=== PATIENT | male | born 1990 | race African-American/Black ===

== ENCOUNTER 2017-04-12 10:50 | Emergency (ER) | payer OTHER ==
[~2017-04-12] VITALS: Wt 61.5 kg
[~2017-04-12 10:50] MED LIST: ACET500C5 PO; ALBU18HF INHALATION; AMOX1TAB10 PO; AZIT250T94 PO; BACTDS PO; BENZ100C70 PO; D-ME473S2 PO; IBUP-1542 PO; IBUP400T22 PO; LORA-441 PO; PSEU120T51 PO; UDPVCC PO; UDROBDM PO
--- NOTE | 2017-04-12 13:35 | ERD ---
ER Documentation Chief Complaint Chief Complaint COUGH, CONGESTION, ONSET 3 WEEKS HPI 26-year-old male, with history of asthma, presents to the emergency department complaining of 3 weeks of progressive cough and chest congestion. The cough is described as dry, constant. Associated with mild fever and wheezing. No treatment attempted at this time. ROS SYSTEMIC symptoms: Subjective fever, chills, no night sweats, no weight loss EYE symptoms: No blurred vision, no eye discharge OTOLARYNGEAL symptoms: No hearing loss. No ear pain, no sore throat CARDIOVASCULAR symptoms: No chest pain or discomfort, no palpitations. PULMONARY symptoms: Per HPI GASTROINTESTINAL symptoms: No abdominal pain, no nausea, no vomiting, no diarrhea MUSCULOSKELETAL symptoms: No arthralgias, no muscle aches. NEUROLOGY symptoms: No confusion, no syncope, no numbness or tingling. SKIN: No rashes Medications Home Meds Active Scripts Promethazine HCl/Codeine (Prometh-Codein 6.25-10 mg/5 ml) 5 Ml Syrup, 5 ML PO QHS for COUGH for 5 Days, #120 ML Prov:HAKEEM TAM MD 04/12/17 Albuterol Sulfate* (Proair HFA*) 8.5 Gm Hfa.aer.ad, 2 PUFF INH Q6H Y for WHEEZING AND SOB, #1 INHALER Prov:HAKEEM TAM MD 04/12/17 Azithromycin* (Zithromax*) 250 Mg Tablet, 250 MG PO .ZPACK DIRECTED, #6 TAB TAKE 500 MG (2 TABS) THE FIRST DAY THEN 250 MG (1 TAB) DAYS 2-5 Prov:HAKEEM TAM MD 04/12/17 Ibuprofen* (Motrin*) 600 Mg Tab, 600 MG PO Q6, #30 TAB Prov:MARIBEL VELÁSQUEZ PA-C 11/10/15 Benzonatate* (Tessalon Perle*) 100 Mg Capsule, 100 MG PO Q8H Y for COUGH, #20 CAP Prov:MARIBEL VELÁSQUEZ PA-C 11/10/15 Pseudoephedrine Hcl (Sudafed 12 Hour) 120 Mg Tablet.sa, 120 MG PO DAILY, #30 TAB 0 Refills Prov:EDELMIRA CLAY PA-C 07/30/15 Albuterol Sulfate* (Ventolin HFA*) 18 Gm Hfa.aer.ad, 2 PUFF INHALATION Q6H, #1 INHALER 0 Refills Prov:EDELMIRA CLAY CIRA 07/30/15 Phenylephrine Ois-Njxalxn-Tvjyqvgacqoj* (Promethazine VC Codeine* Syrup) 120 Ml Syrup, 5 ML PO Q6 Y for COUGH, #120 ML 0 Refills Prov:EDELMIRA CLAY CIRA 07/30/15 Amox Tr/Potassium Clavulanate (Amox Tr-K Clv 875-125 Mg Tab) 1 Tab Tablet, 1 TAB PO BID, #20 TAB 0 Refills Prov:EDELMIRA CLAY CIRA 07/30/15 Guaifenesin-Dextromethorphan* (Robitussin* DM) 100MG/10MG/5ML Syrup, 5 ML PO Q6H Y for COUGH, #120 ML 0 Refills Prov:EDELMIRA CLAY CIRA 07/25/15 Azithromycin* (Zithromax*) 250 Mg Tablet, 250 MG PO .ANNEMARIE DIRECTED, #6 TAB 0 Refills TAKE 500 MG (2 TABS) THE FIRST DAY THEN 250 MG (1 TAB) DAYS 2-5 Prov:EDELMIRA CLAY CIRA 07/25/15 Ibuprofen* (Motrin*) 400 Mg Tab, 400 MG PO Q6, #30 TAB 0 Refills Prov:EDELMIRA CLAY CIRA 07/25/15 Acetaminophen* (Tylophen*) 500 Mg Capsule, 1 CAP PO Q6H Y for PAIN AND OR ELEVATED TEMP, #30 CAP 0 Refills Prov:EDELMIRA CLAY CIRA 07/25/15 Acetaminophen* (Tylophen*) 500 Mg Capsule, 2 CAP PO Q8H Y for PAIN AND OR ELEVATED TEMP, #20 CAP Prov:CARLOS FUENTES 04/01/15 Pseudoephedrine Hcl (Sudafed 12 Hour) 120 Mg Tablet.sa, 120 MG PO Q12 for 3 Days Prov:CARLOS FUENTES 04/01/15 Dextromethorphan Hb-Promethazine Hcl* (Promethazine DM* Syrup) 473 Ml Syrup, 5 ML PO Q6 Y for COUGH for 5 Days, ML Prov:CARLOS FUENTES 04/01/15 Lorazepam* (Ativan*) 0.5 Mg Tablet, 0.5 MG PO Q8H Y for ANXIETY, #10 TAB Prov:CHAD COLIN 03/17/15 Sulfamethoxazole-Trimethoprim* (Bactrim* DS) 800-160 Mg Tab, 1 TAB PO BID for 10 Days, TAB Prov:CRISTIYIFANCHAD 03/17/15 Allergies Allergies: Coded Allergies: No Known Allergy (Unverified , 10/18/13) PMhx/Soc History of Surgery: No Anesthesia Reaction: No Hx Neurological Disorder: No Hx Respiratory Disorders: No Hx Cardiac Disorders: No Hx Psychiatric Problems: No Hx Miscellaneous Medical Probl: No Hx Alcohol Use: No Hx Substance Use: No Hx Tobacco Use: No Smoking Status: Never smoker Physical Exam Vitals Vital Signs Date Time Temp Pulse Resp B/P Pulse Ox O2 Delivery O2 Flow Rate FiO2 04/12/17 10:55 96.8 99 18 106/66 99 Physical Exam Patient is in no acute distress, vital signs stable. Alert and fully oriented. EYES: PERRLA, EOMI, Sclera and conjunctiva appear normal. EARS: Canals clear, tympanic membranes WNL THROAT: Normal oropharynx. NECK: Supple, No lymphadenopathy. Full ROM without pain or tenderness. HEART: RRR, no rubs, murmurs, clicks or gallops. LUNGS: Bilateral rhonchi with mild diffuse wheezing ABDOMEN: Soft, non-tender without masses or hepatosplenomegaly. EXTREMITIES: No edema bilaterally. BACK: Full ROM, no deformity, normal back exam NEURO: Cranial nerves grossly intact, no motor or sensory deficit Procedures/MDM 26-year-old with a remote history of asthma, presents to the emergency department complaining of worsening of cough for 3 weeks. Vital signs stable, physical exam revealed bilateral rhonchi with mild expiratory wheezing, no signs of respiratory distress. Differential diagnosis include but not limited to : Respiratory infection bacterial/viral/fungal. Asthma/COPD, pneumonitis, allergies, GERD. Less likely foreign body aspiration, cardiac related, aspiration pneumonia, malignancy. Physical examination and clinical presentation consistent most likely with acute wheezy bronchitis. During the ED course the patient remained stable, no new complaints. Results and clinical impression discussed with patient who agrees with management. The patient is stable to be treated outpatient and will be discharged home with a Rx for azithromycin, pro-air, promethazine with codeine, some side effects of prescribed medications (headache, rash, nausea, vomiting, diarrhea, drowsiness, habituation, bleeding, hypertension, interactions with other medications) were reviewed. The patient was instructed to follow up with the primary care provider in the next 48h. If symptoms persist, worsen or new symptoms develop, then patient should return to the ED immediately. Instructions explained and given directly by me to the patient in Turkmen with acknowledgment and demonstrated understanding. Disclaimer: Inadvertent spelling and grammatical errors are likely due to EHR/ dictation software use and do not reflect on the overall quality of patient care. Also, please note that the electronic time recorded on this note does not necessarily reflect the actual time of the patient encounter. Departure Diagnosis: Primary Impression: Acute wheezy bronchitis Condition: Stable Additional Instructions: Call your primary care doctor TOMORROW for an appointment during the next 1-2 days. See the doctor sooner or return here if your condition worsens before your appointment time. Thank you very much for allowing us to participate in your care. Your health and safety is our top priority at [facility]. Have prescriptions filled and follow precisely the directions on the label. Follow-up with primary care provider during the next 4 days and bring all the information and medications prescribed. If illness has not improved in 2 days, then make an appointment with primary care provider. If the provider is unavailable, return to the Emergency Department immediately. HAKEEM TAM MD Apr 12, 2017 13:35
[2017-04-12] MEDS ORDERED: AZIT250T94 PO (13:37)
[2017-04-12] MEDS ORDERED: ALBU8.5H3 INH (13:37)
[2017-04-12] MEDS ORDERED: PROM5SYR2 PO (13:37)
[2017-04-12] MEDS ORDERED: CLOT30CR24 TOP (14:08)
== END 2017-04-12 13:49 | disposition home or self-care (01) ==
LOC: FTE 10:50
DX: J20.9 Acute bronchitis, unspecified (principal)
CPT/HCPCS: 99284

== ENCOUNTER 2017-05-15 09:11 | Emergency (ER) | END 2017-05-15 11:11 | disposition home or self-care (01) ==

== ENCOUNTER 2017-06-28 14:45 | Emergency (ER) | END 2017-06-28 16:55 | disposition home or self-care (01) ==

== ENCOUNTER 2017-09-04 16:25 | Emergency (ER) | END 2017-09-04 18:14 | disposition home or self-care (01) ==

== ENCOUNTER 2018-02-09 14:34 | Emergency (ER) | END 2018-02-09 17:13 | disposition home or self-care (01) ==

== ENCOUNTER 2018-02-17 13:19 | Emergency (ER) | END 2018-02-17 14:43 | disposition home or self-care (01) ==

== ENCOUNTER 2018-03-07 12:57 | Emergency (ER) | END 2018-03-07 17:19 | disposition home or self-care (01) ==

== ENCOUNTER 2018-03-25 03:31 | Emergency (ER) | END 2018-03-25 05:00 | disposition home or self-care (01) ==